=== PATIENT | female | born 1985 | race Two or more races ===

== ENCOUNTER 2018-12-28 19:22 | Emergency (ER) | payer OTHER ==
[~2018-12-28] VITALS: Ht 160 cm; Wt 72.6 kg
[~2018-12-28 19:22] MED LIST: CIPRO500 MG PO; TRAMADOL HCL50 MG PO
== END 2018-12-28 23:11 | disposition home or self-care (01) ==
LOC: ER 19:22
DX: J11.1 Influenza due to unidentified influenza virus with other respiratory manifestations (principal)

== ENCOUNTER 2020-06-05 21:16 | Emergency (ER) | payer OTHER ==
[~2020-06-05] VITALS: Ht 162.6 cm; Wt 72.6 kg
== END 2020-06-05 23:16 | disposition home or self-care (01) ==
LOC: ER 21:16
DX: R53.81 Other malaise (principal); Z03.818 Encounter for observation for suspected exposure to other biological agents ruled out